=== PATIENT | male | born 1990 | race Caucasian/White ===

== ENCOUNTER 2016-04-25 07:02 | Emergency (ER) | payer MEDICAID ==
--- NOTE | 2016-04-25 07:26 | ERNOTE ---
<BarryStefanie ford - Last Filed: 04/25/16 07:23> Date of Service: 04/25/16 Time Seen by Provider: 04/25/16 07:05 Stated Complaint: URI CHEST FEELS HEAVY Immunizations: IMMUNIZATION HX Immunizations Up to Date Yes History of Influenza Vaccine No Hx Pneumococcal Vaccination No Allergies/Adverse Reactions: Allergies wasp venom Allergy (Severe, Verified 04/25/16 07:16) Anaphylaxis hydrocodone bitartrate [From Vicodin] Allergy (Mild, Verified 04/25/16 07:16) Hives Home Medications: HOME MEDICATIONS Albuterol Sulfate [Proair Hfa] 2 puff IH Q4H PRN #1 inhaler 04/25/16 [Last Taken Unknown] - History of Present Ilness Narrative: pt is here for chest pain ONLY when he takes a deep breath. He states "it feels like I have fluid around my heart" pt has never had pericardial effusion or pulmonary effusion in the past. he is an active tobacco smoker. Review of Systems - Review of Systems Constitutional: Present: no symptoms reported EYE: Present: no symptoms reported ENT: Present: no symptoms reported Respiratory: Present: See HPI Cardiology: Present: no symptoms reported Gastrointestinal/Abdominal: Present: no symptoms reported Genitourinary: Present: no symptoms reported - Patient's Past Medical History Patient History - Medical: No pertinent hx Patient History - Cardiac/Respiratory: No pertinent hx Patient History - Cancer: No Hx of Cancer Patient History - Surgical Procedures: Other - Social History Living Situations: significant other Smoking Status: Current every day smoker Have you smoked in the past 12 months: Yes Do you dip or chew tobacco: No Patient requests Smoking Cessation Consult: Yes Initiate information on Smoking Cessation: Yes Alcohol Use: rarely Drug Use: none, marijuana Physical Exam - Physical Exam General Appearance: Present: wd/wn, alert, no apparent distress Ears, Nose, Throat: Present: hearing grossly normal Neck: Present: normal inspection, nontender, supple Respiratory: Present: no respiratory distress, normal breath sounds, no accessory muscle use, chest nontender, lungs clear Cardiovascular/Chest: Present: regular rate, rhythm, no murmur, normal peripheral pulses Extremity Exam: Present: normal inspection, non-tender, no edema, normal range of motion ED Progress - Vital Signs Vital Signs: Vital Signs 04/25/16 07:09 Temperature 36.6 C Pulse Rate 85 Respiratory 18 Rate Blood Pressure 187/98 O2 Sat by Pulse 97 Oximetry - Progress/Reassessment Chief Complaint: Upper Respiratory Symptoms - Transfer of Care Physician Sign Out: Stefanie Garcia Receiving Physician: Jennifer Gomez Departure - Departure Clinical Impression: Bronchitis Disposition: Home self-care Condition: Good Instructions: Bronchospasm, Adult, Form - Excuse from Work, School, or Physical Activity Additional Instructions: cut down on your smoking and mountain dew intake use the inhaler with a spacer as needed try over the counter mucinex try to get established with a primary care doctor Referrals: Corie Musa MD [Staff Physician] - Prescriptions: Albuterol Sulfate [Proair Hfa] 2 puff IH Q4H PRN #1 inhaler PRN Reason: Shortness Of Breath <Jennifer Gomez - Last Filed: 04/25/16 08:58> Immunizations: IMMUNIZATION HX Immunizations Up to Date Yes History of Influenza Vaccine No Hx Pneumococcal Vaccination No ED Progress - Results and Orders Patient's Lab Results:: I have reviewed the patient's lab results. - Vital Signs Patient's Vital Signs:: I have reviewed the patient's vital signs. Vital Signs: Vital Signs 04/25/16 07:09 Temperature 36.6 C Pulse Rate 85 Respiratory 18 Rate Blood Pressure 187/98 O2 Sat by Pulse 97 Oximetry - X-Ray X-Ray #1 X-Ray: chest - no focal findings, peribronchinchal thinkening Interpretation: Reviewed by me - Progress/Reassessment Progress Note-Subjective: 04/25/16 08:29 discussed Xray with patient lungs clear to auscultation 04/25/16 08:56 feeling better after neb treatment
[2016-04-25 08:03] LABS: Hematocrit 49.1 % (42.0-52.0); Hemoglobin 16.9 gm/dL (13.5-18.0); Mean Cell Volume 85.7 fl (78-100); Mean Corpuscular Hemoglobin 29.5 pg (27-31); Mean Corpuscular Hgb Conc 34.4 g/dl (32-36); Mean Platelet Volume 8.5 fl (6.0-9.5); Neutrophil # 9.5 K/mm3 (1.3-6.0); Neutrophil % 73.6 % (42-75.0); Platelet Count 288 K/mm3 (150-450); Red Blood Count 5.73 M/mm3 (4.7-6.0); Red Cell Distribution Width 12.4 % (11.5-14.0)
[2016-04-25 08:25] VITALS: BP 149/101
[2016-04-25] MEDS ORDERED: IBUPROFEN 600 MG TABLET PO ONE (08:28)
[2016-04-25] MEDS ORDERED: ALBUTEROL SULFATE 2.5 MG/0.5 ML VIAL.NEB IH ONE ×2 (08:28→08:31)
[2016-04-25] MEDS ORDERED: IBUPROFEN 600 MG TABLET ONE (08:31)
[2016-04-25] MEDS ORDERED: NORMAL SALINE 1,000 ML IV ONE (08:42)
== END 2016-04-25 09:00 | disposition home or self-care (01) ==
LOC: ER 07:02
DX: J20.9 Acute bronchitis, unspecified (principal); F17.210 Nicotine dependence, cigarettes, uncomplicated

== ENCOUNTER 2016-09-28 12:07 | Emergency (ER) | payer SELFPAY ==
[2016-09-28 12:15] VITALS: BP 142/55
--- NOTE | 2016-09-28 12:42 | ERNOTE ---
Medical Problem HPI - Narrative Date of Service: 09/28/16 - General Chief Complaint: Nausea/Vomiting Time Seen by Provider: 09/28/16 12:19 Source: patient Exam Limitations: no limitations - Immun/Allergies/Home Medications Immunizations: IMMUNIZATION HX Immunizations Up to Date Yes History of Influenza Vaccine No Hx Pneumococcal Vaccination No Allergies/Adverse Reactions: Allergies venom-wasp [wasp venom] Allergy (Severe, Verified 09/28/16 12:15) Anaphylaxis hydrocodone bitartrate [From Vicodin] Allergy (Mild, Verified 09/28/16 12:15) Hives Home Medications: HOME MEDICATIONS NK [No Home Medication] 09/28/16 [Last Taken Unknown] - History of Present History Narrative: Pt. comes in with c/o 1 episode of vomiting and diarrhea this morning at 0800. Pt. states that he ate a cold chicken quesadilla from [employer] just before going to sleep last night and thinks it caused the symptoms. Pt. states that all symptoms are resolved at this time and that he just needs a work note as he called in sick this morning. Pt. denies any treatment alleviating factors and aggravating factors. Review of Systems - Review of Systems Constitutional: Present: no symptoms reported. Absent: recent illness, fever, chills, weakness, fatigue, malaise EYE: Present: no symptoms reported ENT: Present: no symptoms reported Respiratory: Present: no symptoms reported. Absent: shortness of breath, cough , wheezing Cardiology: Present: no symptoms reported. Absent: chest pain, palpitations, edema Gastrointestinal/Abdominal: Present: nausea, vomiting, diarrhea. Absent: abdominal pain, eating less, drinking less Genitourinary: Present: no symptoms reported. Absent: frequency, decreased urinary output Musculoskeletal: Present: no symptoms reported. Absent: back pain, joint pain Skin: Present: no symptoms reported. Absent: rash, change in hair/nails Neurological: Present: no symptoms reported. Absent: headache, dizziness/light- headedness All Other Systems: All systems neg except as marked - Patient's Past Medical History Patient History - Medical: No pertinent hx Patient History - Cardiac/Respiratory: No pertinent hx Patient History - Cancer: No Hx of Cancer Patient History - Surgical Procedures: Other Patient History - Other: None - Social History Living Situations: significant other Abuse History: No History of abuse Psych History: No pertinent hx, Hx of Depression Smoking Status: Current every day smoker Have you smoked in the past 12 months: Yes Alcohol Use: rarely Drug Use: none, marijuana - Immunizations Immunizations Up to Date: Yes Hx Pneumococcal Vaccination: No History of Influenza Vaccine: No Physical Exam - Physical Exam General Appearance: Present: wd/wn, alert, no apparent distress Eye Exam: Normal inspection: bilateral, PERRL: bilateral, EOMI: bilateral Ears, Nose, Throat: Present: normal ENT inspection, normal pharynx Neck: Present: normal inspection, nontender. Absent: lymphadenopathy (R), lymphadenopathy (L) Respiratory: Present: no respiratory distress, normal breath sounds, no accessory muscle use, chest nontender, lungs clear Cardiovascular/Chest: Present: regular rate, rhythm, no murmur, normal peripheral pulses Gastrointestinal/Abdominal: Present: normal bowel sounds, nontender, nondistended, soft, no organomegaly Back Exam: Present: normal inspection, normal range of motion, no CVA tenderness , no vertebral tenderness Extremity Exam: Present: normal inspection, non-tender, normal range of motion, no edema Neurological Exam: Present: alert, oriented, normal mood/affect, no motor/ sensory deficits Skin Exam: Present: normal color, warm/dry ED Progress - Date and Time Seen: Date and Time: 09/28/16 12:39 pt. eating and drinking without difficulty and as this was a onetime episode feel taht it was likely stomach upset from bad food. Educated pt. on warning signs of food poisoning. - Vital Signs Patient's Vital Signs:: I have reviewed the patient's vital signs. Vital Signs: Vital Signs 09/28/16 12:12 Temperature 36.7 C Pulse Rate 78 Respiratory 14 Rate Blood Pressure 142/55 O2 Sat by Pulse 97 Oximetry - Progress/Reassessment Chief Complaint: Nausea/Vomiting Departure - Departure Clinical Impression: Food intolerance Disposition: Home self-care Condition: Good Instructions: Nausea, Adult, Form - Excuse from Work, School, or Physical Activity Additional Instructions: Please follow up with primary provider if symptoms return
== END 2016-09-28 13:02 | disposition home or self-care (01) ==
LOC: ER 12:07
DX: T62.91XA Toxic effect of unspecified noxious substance eaten as food, accidental (unintentional), initial encounter (principal); R11.2 Nausea with vomiting, unspecified

== ENCOUNTER 2016-11-21 12:04 | Emergency (ER) | payer MEDICAID, OTHER ==
--- NOTE | 2016-11-21 12:31 | ERNOTE ---
Abdominal HPI - Narrative Date of Service: 11/21/16 - General Chief Complaint: Abdominal Pain Time Seen by Provider: 11/21/16 12:17 Source: patient, RN notes reviewed Exam Limitations: no limitations - Immun/Allergies/Home Medications Immunizatons: IMMUNIZATION HX Immunizations Up to Date Yes History of Influenza Vaccine Yes Hx Pneumococcal Vaccination Yes Allergies/Adverse Reactions: Allergies venom-wasp [wasp venom] Allergy (Severe, Verified 11/28/16 11:29) Anaphylaxis hydrocodone bitartrate [From Vicodin] Allergy (Mild, Verified 11/28/16 11:29) Hives Home Medications: HOME MEDICATIONS Cyclobenzaprine HCl [Flexeril] 10 mg PO TID PRN #20 tab 11/28/16 [Last Taken Unknown] - Pain Score Pain Score #1 Pain Score: 5 Abdominal Pain Onset Location: other - Right mid abdomen Pain Radiation: no radiation - History of Present Illness Narrative: 26 y/o male ambulatory to the ED for abdominal pain that he noticed when he woke up this morning. The pain is in his right mid-abdomen and has been constant. He also reports nausea. He had a "normal" bowel movement yesterday. He has not taken anything for pain and denies needing any pain medication on initial evaluation. Date (Duration): 11/21/16 Time (Timing): 06:00 Timing: constant Quality: moderate, aching Activities at Onset: rest Associated Symptoms: Present: diaphoresis, nausea. Absent: back pain, diarrhea- gross blood, diarrhea-mucous, fatigue, fever/chills, heartburn, vomiting, shortness of breath, swelling/mass in abdomen Prior Abdominal Problems: Present: none Review of Systems - Review of Systems Constitutional: Present: diaphoresis. Absent: recent illness, fever, chills EYE: Present: no symptoms reported ENT: Absent: nose congestion, sore throat Respiratory: Absent: shortness of breath, cough Cardiology: Absent: chest pain, syncope Gastrointestinal/Abdominal: Present: nausea, abdominal pain. Absent: vomiting, diarrhea, constipation Genitourinary: Absent: frequency, dysuria, hematuria Musculoskeletal: Absent: back pain, muscle pain Skin: Absent: rash, lesions Neurological: Absent: headache, dizziness/light-headedness Endocrine: Present: no symptoms reported Hematologic/Lymphatic: Present: no symptoms reported Psych: Present: no symptoms reported - Patient's Past Medical History Patient History - Medical: No pertinent hx Patient History - Cardiac/Respiratory: No pertinent hx Patient History - Cancer: No Hx of Cancer Patient History - Surgical Procedures: Other Patient History - Other: None - Social History Living Situations: home Abuse History: No History of abuse Psych History: No pertinent hx, Hx of Depression Smoking Status: Current every day smoker Cigarettes Packs Per Day: 0.5 Have you smoked in the past 12 months: Yes Alcohol Use: rarely Drug Use: marijuana - Immunizations Immunizations Up to Date: Yes Hx Pneumococcal Vaccination: Yes History of Influenza Vaccine: Yes Physical Exam - Physical Exam General Appearance: Present: wd/wn, alert, no apparent distress Head Exam: Present: normal inspection Eye Exam: Normal inspection: bilateral Neck: Present: normal inspection, nontender, supple Respiratory: Present: no respiratory distress, normal breath sounds, no accessory muscle use, chest nontender, lungs clear Cardiovascular/Chest: Present: regular rate, rhythm, no murmur Gastrointestinal/Abdominal: Present: normal bowel sounds, nondistended, soft, no organomegaly, tenderness - Right mid abdomen. Absent: guarding, rebound, mass, hernia Back Exam: Present: normal inspection, no CVA tenderness Extremity Exam: Present: normal inspection, normal range of motion, no edema Neurological Exam: Present: alert, oriented, normal mood/affect Skin Exam: Present: normal color, warm/dry ED Progress - Results and Orders Patient's Lab Results:: I have reviewed the patient's lab results. - Vital Signs Patient's Vital Signs:: I have reviewed the patient's vital signs. Vital Signs: Vital Signs 11/21/16 12:09 Temperature 37.2 C Pulse Rate 76 Respiratory 16 Rate Blood Pressure 140/81 O2 Sat by Pulse 99 Oximetry - X-Ray X-Ray #1 X-Ray: abdomen Interpretation: Reviewed by me X-ray Comments: Technique: Supine and upright views the abdomen utilizing 5 total images. Findings: Mild fecal retention seen throughout the colon. No dilated colon. Some minimal scattered nondilated air-filled loops of small bowel in the left side of the abdomen. No evidence for mechanical obstruction. Osseous structures are normal. IMPRESSION: 1. MILD FECAL RETENTION WITHOUT EVIDENCE FOR MECHANICAL OBSTRUCTION. 2. SOME SCATTERED AIR-FILLED LOOPS OF SMALL BOWEL WHICH ARE NONSPECIFIC AND COULD REPRESENT GASTROENTERITIS GIVEN THE HISTORY OF ABDOMINAL PAIN. Electronically signed by Wilmar Jeff D.O.. Wilmar Jeff DO - Progress/Reassessment Chief Complaint: Abdominal Pain Progress:: Improved Progress Note-Subjective: 11/21/16 13:40 Patient has thus far been unable to void for UA. IV NS 1 liter bolus ordered. Patient reports nausea after IV start. Zofran ordered. 11/21/16 15:17 Discussed lab results - no indication of any acute process. Xray ordered. Pain remains unchanged. Departure - Departure Clinical Impression: Abdominal pain in male Constipation Qualifiers: Constipation type: unspecified constipation type Qualified Code(s): K59.00 - Constipation, unspecified Disposition: Home self-care Condition: Good Instructions: Constipation, Adult, [id number], Form - Excuse from Work, School, or Physical Activity Additional Instructions: Drink entire bottle of mag citrate when you get home - follow with a large glass of water Return if pain worsens, you have a fever, you are unable to tolerate oral intake or for other concerns
[2016-11-21 12:33] LABS: Hematocrit 48.2 % (42.0-52.0); Hemoglobin 16.6 gm/dL (13.5-18.0); Mean Corpuscular Hemoglobin 30.3 pg (27-31); Mean Corpuscular Hgb Conc 34.4 g/dl (32-36); Mean Platelet Volume 8.5 fl (6.0-9.5); Neutrophil # 4.2 K/mm3 (1.3-6.0); Neutrophil % 53.3 % (42-75.0); Platelet Count 302 K/mm3 (150-450); Red Blood Count 5.48 M/mm3 (4.7-6.0); Red Cell Distribution Width 12.7 % (11.5-14.0); White Blood Count 7.9 K/mm3 (4.0-10.5)
[2016-11-21 12:46] LABS: BUN/Creatinine Ratio 11.9 (9.0-21.6); Blood Urea Nitrogen 13 mg/dL (6-23); Carbon Dioxide 27.6 mmol/L (24-32.6); Chloride 103 mmol/L (97-106); Glucose * 126 mg/dL (70-110); Potassium 3.8 mmol/L (3.4-4.6); Sodium 140 mmol/L (132-142)
[2016-11-21 12:47] LABS: ALT 26 U/L (19-67); AST 21 U/L (0-48); Alkaline Phosphatase * 40 U/L (50-170); Anion Gap 13.2 mmol/L (6.8-13.8); Bilirubin, Total 0.6 mg/dL (0.0-1.1); Ca. Corrected For Albumin 8.5 mg/dL (8.4-10.2); Calcium * 8.8 mg/dL (7.9-10.9); Total Protein 7.7 gm/dL (6.2-8.2)
[2016-11-21] MEDS ORDERED: ONDANSETRON HCL/PF 2 MG/ML VIAL IV ONE (13:39)
[2016-11-21] MEDS ORDERED: ONDANSETRON HCL/PF 2 MG/ML VIAL ONE (13:39)
[2016-11-21] MEDS ORDERED: NORMAL SALINE 1,000 ML IV ONE (13:44)
[2016-11-21 15:00] LABS: Urine Bilirubin Negative (NEGATIVE); Urine Blood Negative /ul (NEGATIVE); Urine Ketone Negative (NEGATIVE); Urine Nitrite Negative (NEGATIVE); Urine Protein Negative (NEGATIVE); Urine Urobilinogen Normal (NORMAL); Urine pH 5.5 pH (5.0-7.0)
[2016-11-21 15:08] LABS: Urine Appearance Clear; Urine Bacteria None Seen; Urine Color Yellow; Urine RBC None Seen /hpf (0-5); Urine WBC None Seen /hpf (0-5)
[2016-11-21] MEDS ORDERED: MAGNESIUM CITRATE 300 ML BTL PO ONE (15:48)
[2016-11-21] MEDS ORDERED: MAGNESIUM CITRATE 300 ML BTL ONE (15:51)
[2016-11-21 16:10] VITALS: BP 120/72
== END 2016-11-21 15:56 | disposition home or self-care (01) ==
LOC: ER 12:04
DX: K59.00 Constipation, unspecified (principal); F17.210 Nicotine dependence, cigarettes, uncomplicated
CPT/HCPCS: 36415; 74020; 80053; 81001; 85025; 85652; 86140; 96374; 99284; J2405

== ENCOUNTER 2016-11-28 11:20 | Emergency (ER) | payer OTHER ==
[2016-11-28] MEDS ORDERED: KETOROLAC TROMETHAMINE 30 MG/ML VIAL IM ONE (11:38)
[2016-11-28] MEDS ORDERED: KETOROLAC TROMETHAMINE 30 MG/ML VIAL ONE (12:01)
--- NOTE | 2016-11-28 12:54 | ERNOTE ---
Upper Extremity HPI - Narrative Date of Service: 11/28/16 - General Extremities Pain Location: shoulder: right Time Seen by Provider: 11/28/16 11:31 Source: patient Exam Limitations: no limitations - Immun/Allergies/Home Medications Immunizations: IMMUNIZATION HX Immunizations Up to Date Yes History of Influenza Vaccine No Hx Pneumococcal Vaccination No Allergies/Adverse Reactions: Allergies Allergy/AdvReac Type Severity Reaction Status Date / Time venom-wasp [wasp venom] Allergy Severe Anaphylaxis Verified 11/28/16 11:29 hydrocodone bitartrate Allergy Mild Hives Verified 11/28/16 11:29 [From Vicodin] Home Medications: HOME MEDICATIONS Cyclobenzaprine HCl [Flexeril] 10 mg PO TID PRN #20 tab 11/28/16 [Last Taken Unknown] - History of Present Illness Narrative: patient presents to the ED for right shoulder pain. He relates most of the pain in his posterior scapula. He woke up with the pain this am. He relates a prior dislocation of this shoulder but denies any recent injuries. No fever. Tingling in the finger tips right but no weakness. Pain can be severe, spasmotic. No neck or back pain. No CP or SOB. No abdominal pain. Pain worse with palpation and movement. Occurred: this morning, other - woke up with it Method of Injury: Reports: unknown Modifying Factors - (Improves): Reports: rest Modifying Factors - (Worsens): Reports: movement Associated Symptoms: Reports: tingling. Denies: weakness Other Injuries: Reports: none Prior Treament: Denies: recently seen Review of Systems - Review of Systems Constitutional: Absent: fever Respiratory: Absent: shortness of breath Cardiology: Absent: chest pain Gastrointestinal/Abdominal: Absent: abdominal pain Musculoskeletal: Present: See HPI Skin: Absent: rash Neurological: Absent: weakness - Patient's Past Medical History Patient History - Medical: Kidney stone Patient History - Cardiac/Respiratory: Hypertension Patient History - Cancer: No Hx of Cancer Patient History - Surgical Procedures: Other Patient History - Other: None - Social History Living Situations: home Abuse History: No History of abuse Psych History: No pertinent hx, Hx of Depression Smoking Status: Current every day smoker Have you smoked in the past 12 months: Yes Do you dip or chew tobacco: No Alcohol Use: rarely Drug Use: marijuana - Immunizations Immunizations Up to Date: Yes Hx Pneumococcal Vaccination: No History of Influenza Vaccine: No Physical Exam - Physical Exam General Appearance: Present: alert, no apparent distress, other - non-toxic, no distress Head Exam: Present: normal inspection, no evidence of injury Eye Exam: Normal inspection: bilateral, PERRL: bilateral Ears, Nose, Throat: Present: normal ENT inspection Neck: Present: normal inspection, nontender Respiratory: Present: no respiratory distress, normal breath sounds, no accessory muscle use, lungs clear Cardiovascular/Chest: Present: regular rate, rhythm, normal peripheral pulses, other - strong radial pulse Gastrointestinal/Abdominal: Present: normal bowel sounds, nontender, soft Back Exam: Present: normal inspection, no vertebral tenderness. Absent: CVA tenderness (R), CVA tenderness (L) Extremity Exam: Present: no edema, other - There is significant point tendenress right scapuilar musculature and Trap. Palpation here causes tamika to grimace. Hie has no joint line tendenress and no redness, warmth or swelling. This clinically is muscular pain. Nothing clinically would suggest septic arthritis or joint inflammatory symptoms. Neurological Exam: Present: alert, normal mood/affect, rn imcu II-XII nml as tested , other - Motor intact RUE. Subjective tingling fingertips but sensation to LT intact. Skin Exam: Present: normal color, warm/dry, other - no redness or warmth ED Progress - Vital Signs Patient's Vital Signs:: I have reviewed the patient's vital signs. Vital Signs: Vital Signs 11/28/16 11:25 Temperature 37.3 C Pulse Rate 82 Respiratory 18 Rate Blood Pressure 133/85 O2 Sat by Pulse 99 Oximetry - X-Ray X-Ray #1 X-Ray: shoulder Interpretation: Interp. by me X-ray Comments: No acute process, I reviewed official x-ray report - Progress/Reassessment Chief Complaint: Shoulder Injury/Pain Progress Note-Subjective: 11/28/16 13:07 Nothing clinically would suggest septic arthritis. I did discuss screening labs with him but he declines this, understands risks, benefits. X-ray neg. Will get him set up with ortho JOI. Clinicllly this is muscular pain. No Fx, nothign to suggest infectious process. I discussed warning signs and reaosns to return as well as the need for close f/u. Departure Clinical Impression: Musculoskeletal pain - Departure Disposition: Home self-care Condition: Stable Instructions: Shoulder Pain, [id number] Additional Instructions: Rest. Fluids. Ibuprofen. No driving with muscle relaxant. You need to be re- checked in the next 1-2 days. Return if you change your mind about having blood testing, develop fever, increased pain, redness, numbness, tingling, weakness or if your condition worsens or changes in any way. Prescriptions: Cyclobenzaprine HCl [Flexeril] 10 mg PO TID PRN #20 tab PRN Reason: MUSCLE SPASMS
[2016-11-28 13:03] VITALS: BP 116/84
== END 2016-11-28 13:05 | disposition home or self-care (01) ==
LOC: ER 11:20
DX: M79.1 Myalgia (principal); F17.200 Nicotine dependence, unspecified, uncomplicated

== ENCOUNTER 2016-12-23 10:10 | Emergency (ER) | payer OTHER, MEDICAID ==
[2016-12-23 10:33] VITALS: BP 156/94
--- NOTE | 2016-12-23 10:40 | ERNOTE ---
Back Pain ER HPI Date of Service: 12/23/16 Presenting Symptoms: injury/pain to back Time Seen by Provider: 12/23/16 10:38 Source: patient, RN notes reviewed Exam Limitations: no limitations Immunizations: IMMUNIZATION HX Immunizations Up to Date Yes History of Influenza Vaccine No Hx Pneumococcal Vaccination No Allergies/Adverse Reactions: Allergies venom-wasp [wasp venom] Allergy (Severe, Verified 12/23/16 10:34) Anaphylaxis hydrocodone bitartrate [From Vicodin] Allergy (Mild, Verified 12/23/16 10:34) Hives Home Medications: HOME MEDICATIONS Cyclobenzaprine HCl [Flexeril] 10 mg PO TID PRN #20 tab 11/28/16 [Last Taken Unknown] Narrative: 26 y/o male presents to the ED for low back pain that began yesterday. He was lifting something heavy at work when the pain began. He has a left shoulder injury and believes he may have lifted incorrectly to compensate for this. He reports that he hurt his back at work when he was 17 years old, but has not had problems with it for some time. He took Aleve and Tylenol for the pain at about 0500 this morning. Date (Duration): 12/22/16 Quality/Severity: Reports: severe Location of pain: Reports: lower back, radiating to lf thigh/leg Activities at Onset: Reports: activity Recent Injury?: Reports: possibly Possible Precipitating Factor: Reports: lifting Associated Symptoms: Denies: constipation/incontinence, nausea/vomiting, problems urinating, difficulty walking, numbess/weakness in legs Prior Treament: Reports: recently seen, similar symptoms before Review of Systems - Review of Systems Constitutional: Absent: recent illness, fever, chills EYE: Present: no symptoms reported ENT: Present: no symptoms reported Respiratory: Absent: shortness of breath, cough Cardiology: Absent: chest pain, edema Gastrointestinal/Abdominal: Absent: nausea, vomiting, abdominal pain Genitourinary: Absent: dysuria, hematuria Musculoskeletal: Present: back pain, muscle pain, muscle stiffness, joint pain. Absent: neck pain, joint swelling Skin: Absent: lesions, lumps, change in color Neurological: Absent: weakness, numbness, tingling Endocrine: Present: no symptoms reported Hematologic/Lymphatic: Present: no symptoms reported Psych: Present: no symptoms reported - Patient's Past Medical History Patient History - Medical: Kidney stone Patient History - Cardiac/Respiratory: Hypertension Patient History - Cancer: No Hx of Cancer Patient History - Surgical Procedures: Other Patient History - Other: None - Social History Living Situations: home Abuse History: No History of abuse Psych History: No pertinent hx, Hx of Depression Smoking Status: Current every day smoker Alcohol Use: rarely Drug Use: marijuana - Immunizations Immunizations Up to Date: Yes Hx Pneumococcal Vaccination: No History of Influenza Vaccine: No Physical Exam - Physical Exam General Appearance: Present: wd/wn, alert, no apparent distress, other - Appears mildly uncomfortable Head Exam: Present: normal inspection, no evidence of injury Neck: Present: normal inspection, nontender, supple, full range of motion Respiratory: Present: no respiratory distress, normal breath sounds, no accessory muscle use, lungs clear Cardiovascular/Chest: Present: regular rate, rhythm, no murmur Gastrointestinal/Abdominal: Present: nontender, nondistended, soft Back Exam: Present: no CVA tenderness, no vertebral tenderness, decreased range of motion, other - Paraspinal muscle tenderness in left lumbar region, Straight leg raise positive at 45 degrees. Absent: muscle spasm Extremity Exam: Present: normal inspection, normal range of motion, no edema Neurological Exam: Present: alert, oriented, normal mood/affect, no motor/ sensory deficits, other - Normal strength against resistance in in lower extremities DTR: N=norm/NB=norm/brisk/A=abs/DD=dull/dimin/HC=hyperactive: Knee (R): Normal/ Brisk, Knee (L): Normal/Brisk Skin Exam: Present: normal color, warm/dry ED Progress - Vital Signs Patient's Vital Signs:: I have reviewed the patient's vital signs. Vital Signs: Vital Signs 12/23/16 10:28 Temperature 36.8 C Pulse Rate 76 Respiratory 16 Rate Blood Pressure 156/94 O2 Sat by Pulse 98 Oximetry - X-Ray X-Ray #1 X-Ray: lumbosacral Interpretation: Reviewed by me X-ray Comments: FIVE VIEW LUMBAR SPINE COMPARISON: 07/18/2013 Technique: The 3 standard projections of the lumbar spine were obtained. In addition, right and left oblique views were obtained. Findings: There are 5 lumbar type vertebrae. The pedicles are intact. The lumbar spine maintains a normal lordotic curvature. The disc spaces are reasonably well- maintained. I do not see evidence for compression fracture or spondylolisthesis. Again seen is bilateral spondylolysis at L5. There is mild degenerative spurring identified within the posterior elements of the lower lumbar spine. The visualized sacrum is intact. IMPRESSION: 1. BILATERAL SPONDYLOLYSIS AT L5, UNCHANGED. 2. NO ACUTE OSSEOUS ABNORMALITY. Electronically signed by Camilo Henderson M.D.. Camilo Henderson MD - Progress/Reassessment Chief Complaint: Back Pain Progress:: Unchanged Departure Clinical Impression: Lumbar back sprain Qualifiers: Encounter type: initial encounter Qualified Code(s): S33.5XXA - Sprain of ligaments of lumbar spine, initial encounter - Departure Disposition: Home Follow Up Needed Condition: Good Instructions: Back Exercises, [id number], Back Pain, Adult, [id number] Additional Instructions: See occupational health instruction sheet Referrals: Carlyn Zavala, MARBELLA [[facility]] -
[2016-12-23] MEDS ORDERED: KETOROLAC TROMETHAMINE 60 MG/2 ML VIAL IM ONE ×2 (10:46→11:07)
[2016-12-23] MEDS ORDERED: ORPHENADRINE CITRATE 30 MG/ML VIAL IM ONE (10:47)
== END 2016-12-23 11:53 | disposition home or self-care (01) ==
LOC: ER 10:10
DX: S33.5XXA Sprain of ligaments of lumbar spine, initial encounter (principal); Z87.442 Personal history of urinary calculi; F17.200 Nicotine dependence, unspecified, uncomplicated; X50.0XXA Overexertion from strenuous movement or load, initial encounter; Y93.89 Activity, other specified; Y92.63 Factory as the place of occurrence of the external cause; Y99.0 Civilian activity done for income or pay

== ENCOUNTER 2017-02-02 16:21 | Emergency (ER) | payer MEDICAID ==
[2017-02-02 19:15] VITALS: BP 108/55
[2017-02-02 19:33] LABS: Urine Bilirubin Negative (NEGATIVE); Urine Blood 50 /ul (NEGATIVE); Urine Ketone Negative (NEGATIVE); Urine Nitrite Negative (NEGATIVE); Urine Protein 15 mg/dL (NEGATIVE); Urine Specific Gravity 1.015 SP.GR. (1.005-1.030); Urine Urobilinogen 4 EU/dl (NORMAL); Urine pH 7.5 pH (5.0-7.0)
[2017-02-02 19:41] LABS: Urine Amorphous Sediment Many - 3+ (NONE-FEW); Urine Appearance Cloudy; Urine Bacteria 1+; Urine Color Orange; Urine WBC 25-50 /hpf (0-5)
[2017-02-02] MEDS ORDERED: AZITHROMYCIN 250 MG TABLET PO ONE (19:53)
--- NOTE | 2017-02-02 20:02 | ERNOTE ---
ER Male HPI Date of Service: 02/02/17 Stated Complaint: LT TESTICLE SWOLLEN ER Male: testicular pain Time Seen by Provider: 02/02/17 18:04 Source: patient Exam Limitations: no limitations Immunizations: IMMUNIZATION HX Immunizations Up to Date Yes History of Influenza Vaccine No Hx Pneumococcal Vaccination No Allergies/Adverse Reactions: Allergies venom-wasp [wasp venom] Allergy (Severe, Verified 02/02/17 16:28) Anaphylaxis hydrocodone bitartrate [From Vicodin] Allergy (Mild, Verified 02/02/17 16:28) Hives Home Medications: HOME MEDICATIONS Naproxen [Naprosyn] 500 mg PO BID #10 tablet 02/02/17 [Last Taken Unknown] Ofloxacin 300 mg PO BID #20 tablet 02/02/17 [Last Taken Unknown] - History of Present Illness Narrative: Patient presents to the ED for left sided testicular pain. The pain started on Monday and has been constant since with gradually increasing pain. Pain is localized to the left testicle. No fever with this. Pain moderate at rest, worse with palpation. Can be severe with palpation. Has been constant and gradually worsening pain. No vomiting. No trauma. Has not seen anyone else for this. Four days of constant and gradually worsening pain. he feels like his left testicle is swollen. Timing: Present: constant, getting worse Quality: Present: moderate Onset Location: Present: other - left testile Radiation: Present: groin Activities at Onset: Present: none Modifying Factors - (Improves): Present: rest Modifying Factors - (Worsens): Present: palpation Associated Symptoms: Absent: fever/chills, vomiting, abdominal pain, dysuria, urinary frequency Prior Treatment: Absent: recently seen Review of Systems - Review of Systems Constitutional: Absent: fever Respiratory: Absent: shortness of breath Cardiology: Absent: chest pain Gastrointestinal/Abdominal: Present: See HPI Genitourinary: Present: See HPI. Absent: dysuria Musculoskeletal: Absent: back pain Skin: Absent: rash Neurological: Absent: weakness - Patient's Past Medical History Patient History - Medical: No pertinent hx Patient History - Cardiac/Respiratory: Hypertension Patient History - Cancer: No Hx of Cancer Patient History - Surgical Procedures: Orthopedic Patient History - Other: None - Social History Living Situations: home Abuse History: No History of abuse Psych History: No pertinent hx, Hx of Depression Alcohol Use: none Drug Use: none - Immunizations Immunizations Up to Date: Yes Hx Pneumococcal Vaccination: No History of Influenza Vaccine: No Physical Exam - Physical Exam General Appearance: Present: alert, no apparent distress Head Exam: Present: normal inspection Eye Exam: Normal inspection: bilateral, PERRL: bilateral Ears, Nose, Throat: Present: normal ENT inspection Neck: Present: normal inspection Respiratory: Present: no respiratory distress, normal breath sounds, no accessory muscle use, lungs clear Cardiovascular/Chest: Present: regular rate, rhythm Gastrointestinal/Abdominal: Present: normal bowel sounds, nontender, nondistended, soft Male Genitals Exam: Present: other - There is mild enlargement of the left testicle with diffuse tenderness of the testicle. No scrotal redness or abscess. No evidence of scrotal erythema/cellulitis or Carlotta's gangrene. I find no evidence of strangulated or incarcerated hernia. Cliniaclly nothign to suggest torsion. Back Exam: Absent: CVA tenderness (R), CVA tenderness (L) Extremity Exam: Present: normal inspection Neurological Exam: Present: alert, normal mood/affect, no motor/sensory deficits Skin Exam: Present: normal color, warm/dry ED Progress - Results and Orders Patient's Lab Results:: I have reviewed the patient's lab results. - Vital Signs Patient's Vital Signs:: I have reviewed the patient's vital signs. Vital Signs: Vital Signs 02/02/17 02/02/17 16:24 19:12 Temperature 36.3 C L 37.1 C Pulse Rate 95 87 Respiratory 12 18 Rate Blood Pressure 144/85 108/55 O2 Sat by Pulse 100 98 Oximetry - CT/Ultrasound CT/Ultrasound Narrative: I reviewed official radiology report of the [place]. - Progress/Reassessment Chief Complaint: Genitourinary Problem Progress Note-Subjective: 02/02/17 19:59 patient stable, non-toxic, no distress. Will treat for STD although by his history this is unlikely. No abscess on US. There is nothing clinically that would suggest torsion at any point in this patient so I do not feel any of the findings would be c/w torsion during this episode. He is stable, non-toxic, no distress, wishing to go home. i discussed warnign signs and reasons to return as well as the need for close f/u. I stressed need for f/u. Departure Clinical Impression: Orchitis and epididymitis - Departure Disposition: Home self-care Condition: Stable Instructions: Epididymitis Additional Instructions: You need to be re-checked by your doctor within the next 3 days. If you have trouble being seen call back here and we will tyr and help you get an appointment. Rest. Fluids. Antibiotics as directed. Return for fever, increased pain or swelling or if your condition worsens or changes in any way. Prescriptions: Naproxen [Naprosyn] 500 mg PO BID #10 tablet Ofloxacin 300 mg PO BID #20 tablet
[2017-02-02] MEDS ORDERED: AZITHROMYCIN 250 MG TABLET ONE ×2 (20:19→20:21)
== END 2017-02-02 20:30 | disposition home or self-care (01) ==
LOC: ER 16:21
DX: N45.2 Orchitis (principal); N45.1 Epididymitis

== ENCOUNTER 2017-02-20 19:48 | Emergency (ER) | payer MEDICAID ==
[2017-02-20] MEDS ORDERED: AMOX TR/POTASSIUM CLAVULANATE 875 MG TABLET PO ONE (21:07)
[2017-02-20] MEDS ORDERED: AMOX TR/POTASSIUM CLAVULANATE 875 MG TABLET ONE (21:14)
--- NOTE | 2017-02-20 21:14 | ERNOTE ---
Date of Service: 02/20/17 Time Seen by Provider: 02/20/17 20:48 Stated Complaint: RATTLING IN CHEST Presenting Symptoms:: cough Source: patient, RN notes reviewed Exam Limitations: no limitations Immunizations: IMMUNIZATION HX Immunizations Up to Date Yes History of Influenza Vaccine No Hx Pneumococcal Vaccination No Allergies/Adverse Reactions: Allergies venom-wasp [wasp venom] Allergy (Severe, Verified 02/02/17 16:28) Anaphylaxis Home Medications: HOME MEDICATIONS Amox Tr/Potassium Clavulanate [Augmentin 875-125 Tablet] 875 mg PO Q12H #20 tab 02/20/17 [Last Taken Unknown] - History of Present Ilness Narrative: Rick is a 26-year-old male who presents to the emergency department for upper respiratory symptoms. He reports starting to have nasal congestion about a week ago. He has been taking an allergy medication but has continued to get worse. He began coughing more yesterday. He reports having a cough productive of green sputum. His girlfriend's children have been sick with similar symptoms. Timing: getting worse Frequency/Possible Cause: Reports: illness exposure Associated Symptoms: Reports: cough, facial pain, nasal congestion, nasal drainage, headache. Denies: chest pain/soreness, shortness of breath, wheezing , dizziness, lightheadedness, earache, sore throat, muscle aches Prior Treatment: Denies: recently seen Review of Systems - Review of Systems Constitutional: Present: fatigue, malaise EYE: Absent: eye pain, eye discharge ENT: Present: nose congestion, nasal drainage. Absent: ear pain, sore throat Respiratory: Present: cough. Absent: shortness of breath, wheezing Cardiology: Absent: chest pain, syncope Gastrointestinal/Abdominal: Absent: nausea, abdominal pain Genitourinary: Present: no symptoms reported Musculoskeletal: Absent: muscle pain, joint pain Skin: Absent: rash, lesions Neurological: Present: headache. Absent: dizziness/light-headedness Endocrine: Present: no symptoms reported Hematologic/Lymphatic: Absent: easy bruising, easy bleeding Psych: Absent: anxiety, depressed - Patient's Past Medical History Patient History - Medical: No pertinent hx Patient History - Cardiac/Respiratory: Hypertension Patient History - Cancer: No Hx of Cancer Patient History - Surgical Procedures: Other, Orthopedic Patient History - Other: None - Social History Living Situations: home Abuse History: No History of abuse Psych History: No pertinent hx, Hx of Depression Smoking Status: Current every day smoker Alcohol Use: none Drug Use: marijuana - Immunizations Immunizations Up to Date: Yes Hx Pneumococcal Vaccination: No History of Influenza Vaccine: No Physical Exam - Physical Exam General Appearance: Present: wd/wn, alert, no apparent distress Head Exam: Present: tenderness - Maxillary sinuses. Absent: swelling Eye Exam: Normal inspection: bilateral Ears, Nose, Throat: Present: nasal congestion, sinus pain/drainage, pharyngeal erythema. Absent: abnormal TM (R), abnormal TM (L), pharyngeal swelling, dry mucous membranes Neck: Present: normal inspection, nontender, supple, full range of motion Respiratory: Present: no respiratory distress, no accessory muscle use, expiration (prolonged), rhonchi Cardiovascular/Chest: Present: regular rate, rhythm, no murmur, normal peripheral pulses Extremity Exam: Present: normal inspection, normal range of motion, no edema Neurological Exam: Present: alert, oriented, normal mood/affect, no motor/ sensory deficits Skin Exam: Present: normal color, warm/dry ED Progress - Vital Signs Patient's Vital Signs:: I have reviewed the patient's vital signs. Vital Signs: Vital Signs 02/20/17 20:18 Temperature 36.7 C Pulse Rate 100 Respiratory 17 Rate Blood Pressure 150/80 O2 Sat by Pulse 96 Oximetry - Progress/Reassessment Chief Complaint: Upper Respiratory Symptoms Progress:: Unchanged Departure Clinical Impression: Bronchitis Sinusitis, acute Qualifiers: Sinusitis location: unspecified location Recurrence: not specified as recurrent Qualified Code(s): J01.90 - Acute sinusitis, unspecified - Departure Disposition: Home self-care Condition: Stable Instructions: Sinusitis, Adult, [id number], Acute Bronchitis Additional Instructions: Drink plenty of water Finish all 10 days of your antibiotic Stop allergy medicine Use nasal saline spray as needed for congestion OK to try something like Robitussin DM for cough Stop smoking Prescriptions: Amox Tr/Potassium Clavulanate [Augmentin 875-125 Tablet] 875 mg PO Q12H #20 tab
[2017-02-20 21:17] VITALS: BP 138/84
== END 2017-02-20 21:25 | disposition home or self-care (01) ==
LOC: ER 19:48
DX: J40 Bronchitis, not specified as acute or chronic (principal); J01.90 Acute sinusitis, unspecified; F17.200 Nicotine dependence, unspecified, uncomplicated